=== PATIENT | male | born 1995 | race Hispanic/Latino ===

== ENCOUNTER 2018-12-04 16:48 | Emergency (ER) | payer OTHER ==
--- NOTE | 2018-12-04 17:52 | ED PDOC ---
Lower Extremity Pain/Injury Time Seen by Provider: 12/04/18 17:15 Chief Complaint (Nursing): Lower Extremity Problem/Injury Chief Complaint (Provider): Right Toe Pain History Per: Patient History/Exam Limitations: no limitations Onset/Duration Of Symptoms: Hrs Additional Complaint(s): 23 year old male with no significant medical history presents to ED with right 2nd, 3rd, 4th toe pain and injury 1 hour [employer]. Patient was playing beach volleyball when he tripped over a hard plastic. 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 Patient reports feeling like his toes are dislocated. He has no other injuries and has not taken any other medicine. PMD: [facility] - Hip Description Of Injury: Tripped Past Medical History Reviewed: Historical Data, Nursing Documentation, Vital Signs Vital Signs: Last Vital Signs Temp 97.9 F 12/04/18 16:56 Pulse 78 12/04/18 16:56 Resp 20 12/04/18 16:56 BP 146/89 12/04/18 16:56 Pulse Ox 98 12/04/18 16:56 - Medical History PMH: No Chronic Diseases - Surgical History Surgical History: No Surg Hx - Family History Family History: States: No Known Family Hx - Social History Current smoker - smoking cessation education provided: No Alcohol: None Drugs: Denies - Home Medications Home Medications: Ambulatory Orders Medication Instructions Recorded Ibuprofen [Motrin Tab] 600 mg PO Q6 PRN #20 tab 12/04/18 - Allergies Allergies/Adverse Reactions: Allergies Allergy/AdvReac Type Severity Reaction Status Date / Time No Known Allergies Allergy Verified 12/04/18 16:56 Review of Systems ROS Statement: Except As Marked, All Systems Reviewed And Found Negative Musculoskeletal: Positive for: Other (Toe Pain in 2nd, 3rd, 4th digits) Physical Exam - Reviewed Nursing Documentation Reviewed: Yes Vital Signs Reviewed: Yes - Physical Exam Comments: Patient reports injuring 2nd, 3rd, and 4th toes on right foot when he tripped over playing beach volleyball. Otherwise: (-) numbness, (-) other injury. GENERAL APPEARANCE: Patient is awake, alert, oriented x 3, in no acute distress. SKIN: Warm, dry; (-) cyanosis. CHEST AND RESPIRATORY: (-) chest wall tenderness. Lungs: (-) rales, (-) rhonchi, (-) wheezes; breath sounds equal bilaterally. HEART AND CARDIOVASCULAR: (-) irregularity; (-) murmur, (-) gallop. FOOT: (+) Tenderness, capillary refill less than 2 seconds, (+) swelling to 2nd, 3rd, and 4th digits with diffuse tenderness, able to wiggle toes (-) deformity. (-) distal neurovascular deficit _. Elbow, hand and digits: (-) tenderness. NEURO AND PSYCH: Mental status as above. - ECG O2 Sat by Pulse Oximetry: 98 (RA) Pulse Ox Interpretation: Normal Medical Decision Making Medical Decision Making: Time: 175 Initial Plan: --Xray --Patient does not want anything for the pain Date of service: 12/04/2018 PROCEDURE: Radiographs of the right 3rd and 4th toes HISTORY: 3rd and 4th toe injury COMPARISON: None TECHNIQUE: Three views were obtained. FINDINGS: There is an acute oblique comminuted nondisplaced fracture in the proximal phalanx of the 3rd toe. Bone alignment and mineralization are normal. The joint spaces are preserved. There is soft tissue swelling in the 3rd toe. IMPRESSION: Acute oblique comminuted nondisplaced fracture in the proximal phalanx of the 3rd toe. spoke to podiatry, will come see him podiatry came, carlitos tape and recommend surgical shoe with f/u surgical shoe applied discussed results, diagnosis, treatment, return precautions and f/u with pt who is understanding, in agreement and stable for dc Scribe Attestation: Documented by Mike Ochoa acting as a scribe for Gerard Nunez PA-C. Provider Scribe Attestation: All medical record entries made by the Scribe were at my direction and personally dictated by me. I have reviewed the chart and agree that the record accurately reflects my personal performance of the history, physical exam, medical decision making, and the department course for this patient. I have also personally directed, reviewed, and agree with the discharge instructions and disposition. Disposition - Clinical Impression Clinical Impression: Closed fracture of phalanx of right third toe - Patient ED Disposition Is Patient to be Admitted: No Counseled Patient/Family Regarding: Studies Performed, Diagnosis, Need For Followup, Rx Given - Disposition Referrals: Podiatry Clinic [Outside] Pascale Laguerre DPM [Medical Doctor] - Disposition: Routine/Home Disposition Time: 19:40 Condition: STABLE Additional Instructions: Thank you for letting us take care of you today. The emergency medical care you received today was directed at your acute symptoms. If you were prescribed any medication, please fill it and take as directed. It may take several days for your symptoms to resolve. Return to the Emergency Department if your symptoms worsen, do not improve, or if you have any other problems. Please contact your doctor in 2 days for re-evaluation and follow up / or call one of the physicians/clinics you have been referred to that are listed on the Patient Visit Information form that is included in your discharge packet. Bring any paperwork you were given at discharge with you along with any medications you are taking to your follow up visit. Our treatment cannot replace ongoing medical care by a primary care provider (PCP) outside of the emergency department. Prescriptions: Ibuprofen [Motrin Tab] 600 mg PO Q6 PRN #20 tab PRN Reason: Pain, Moderate (4-7) Instructions: Toe Fracture (DC) Print Language: POLISH - POA Present On Arrival: None
--- NOTE | 2018-12-04 18:10 | RAD ---
Date of service: 12/04/2018 PROCEDURE: Radiographs of the right 3rd and 4th toes HISTORY: 3rd and 4th toe injury COMPARISON: None TECHNIQUE: Three views were obtained. FINDINGS: There is an acute oblique comminuted nondisplaced fracture in the proximal phalanx of the 3rd toe. Bone alignment and mineralization are normal. The joint spaces are preserved. There is soft tissue swelling in the 3rd toe. IMPRESSION: Acute oblique comminuted nondisplaced fracture in the proximal phalanx of the 3rd toe.
--- NOTE | 2018-12-04 20:01 | CP.PCM.CON ---
History of Present Illness - History of Present Illness History of Present Illness: Podiatry Progress note: Dr. Laguerre 23 year old male with no significantly PMHx was seen and evaluated for right 3rd toe pain. Patient states that he tripped over a hard plastic when he was playing volleyball. Patient states that injury occured couple hours prior to coming to the ED. 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 States that he did not walk on the foot after the injury. Patient also denies of taking any pain medication prior to coming to the hospital. Patient reports that his pain is well managed. Reports of having minimal numbness to the toe and reports that it is swollen. Denies of any other trauma to the foot. Denies of having recent F/N/VC/SOB/CP/heacache. No other pedal complains. PMHx: Denies PSHx: Denies Allergies: N.K.D.A SHx: Denies smoking, or illicit drugs, occ. EtOH Review of Systems - Constitutional Constitutional: As Per HPI Past Patient History - Past Social History Alcohol: None Drugs: Denies - PSYCHIATRIC Hx Substance Use: No - SURGICAL HISTORY Hx Surgeries: No Meds Home Medications: Home Medication List Medication Instructions Recorded Confirmed Type Ibuprofen [Motrin Tab] 600 mg PO Q6 PRN #20 tab 12/04/18 Rx Allergies/Adverse Reactions: Allergies Allergy/AdvReac Type Severity Reaction Status Date / Time No Known Allergies Allergy Verified 12/04/18 16:56 Physical Exam - Constitutional Appears: Well, Non-toxic, No Acute Distress - Head Exam Head Exam: ATRAUMATIC - Extremities Exam Additional comments: Right LE focused exam: VASC: DP/PT pulses are palpable 2/4, Cap refill time: < 3 sec to all digits, Temp gradient: warm to cool from proximal to distal, minimal localized edema noted to the right 3rd digit DERM: No open lesions, no erythema, no clinical suspicion of active infection NEURO: Protective sensation grossly intact ORTHO: AROM at the MTPJ intact - decrease in AROM noted due to patient guarding and swelling, Pain present during PROM of the 3rd digit PIPJ and MTPJ - Neurological Exam Neurological exam: Alert, Oriented x3 - Psychiatric Exam Psychiatric exam: Normal Affect, Normal Mood Results - Vital Signs Recent Vital Signs: Last Vital Signs Temp 97.9 F 12/04/18 16:56 Pulse 78 12/04/18 16:56 Resp 20 12/04/18 16:56 BP 146/89 12/04/18 16:56 Pulse Ox 98 12/04/18 19:41 Assessment & Plan - Assessment and Plan (Free Text) Assessment: 23 year old male with no significant PMHx was evaluated for right foot 3rd proximal phalanx non-displaced, non-intra articular oblique shaft fracture Plan: Patient seen and evaluated Discussed plan with attending Dr. Laguerre X-rays of the right foot taken/ evaluated - non-displaced, non-intra articular, oblique radiolucent line noted through the shaft of the proximal phalanx consistent with a fracture Shay splint applied to the 2nd and 3rd digit Educated patient of RICE therapy Educated patient to take OTC pain medication if pain is not tolerated well Surgical shoe provided - educated patient to remain in the shoe during WB Educated patient to follow up in the podiatry clinic for a f/u Demonstrated verbal understanding of the plan Thank you for the podiatry consult and allowing to take part in patient care - Date & Time Date: 12/04/18 Time: 20:15
[2018-12-04 20:03] VITALS: BP 113/84; PULSE 75; RESP 15; TEMP 968.3
[2018-12-04 23:51] VITALS: O2SAT 98
== END 2018-12-04 19:52 | disposition home or self-care (01) ==
LOC: H.ER 16:48
DX: S92.515A Nondisplaced fracture of proximal phalanx of left lesser toe(s), initial encounter for closed fracture (principal); W19.XXXA Unspecified fall, initial encounter; Y92.39 Other specified sports and athletic area as the place of occurrence of the external cause